=== PATIENT | female | born 1985 | race Caucasian/White ===

== ENCOUNTER → 2018-05-08 09:20 | Outpatient (CLI) | payer SELFPAY ==
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
== END ==
DX: M54.16 Radiculopathy, lumbar region (principal)
CPT/HCPCS: 72148